=== PATIENT | female | born 1970 | race Caucasian/White ===

== ENCOUNTER → 2016-09-25 | Outpatient (CLI) | payer BC ==
--- NOTE | 2016-09-25 16:47 | KCIC ---
Bilateral digital screening mammograms: Reason for examination: Routine screening. Comparison is made to previous studies dated 11/13/2013 and 12/28/2011. The skin and nipples show no abnormalities. No abnormal axillary lymph nodes are seen. Bilateral breast implants remain in place. The breast parenchyma shows scattered fibroglandular density. (Breast density: Category B.) There are no dominant masses, suspicious calcifications or architectural distortions. Impression: No evidence of malignancy. Recommend routine screening. BI-RADS Category 1: Negative. "Our facility is accredited by the [employer] Mammography [employer]." This patient's information has been entered into a reminder system for the patient to be notified with the results of her examination and a target date for the next mammogram. Electronically signed by: Nicol Naik MD (09/25/2016 4:44 PM) [facility]
== END | disposition home or self-care (01) ==
LOC: KCIC MAMMO 12:51
PROVIDERS: ATTEND Obstetrics & Gynecology Gynecology
DX: Z12.31 Encounter for screening mammogram for malignant neoplasm of breast (principal)
CPT/HCPCS: G0202; 77067

== ENCOUNTER → 2017-12-24 | Outpatient (CLI) | payer BC ==
--- NOTE | 2017-12-24 15:31 | KCIC ---
Bilateral digital screening mammograms: Reason for examination: Routine screening. Comparison is made to previous studies dated 09/25/2016 and 11/13/2013. Interpretation was made with the benefit of CAD. The skin and nipples show no abnormalities. No abnormal axillary lymph nodes are seen. Bilateral breast implants remain present. The breast parenchyma is heterogeneously dense. (Breast density: Category C.) There continues to be small nodular parenchymal density centrally in the left breast on oblique view which is not changed. There are no new dominant masses, suspicious calcifications or architectural distortion. Impression: No evidence of malignancy. Recommend routine screening. Your patient's mammogram demonstrates that she has dense breast tissue (breast density category C or D), which could hide abnormalities, and if she has other risk factors for breast cancer that have been identified, she might benefit from supplemental screening tests that may be suggested by you as her ordering physician. Dense breast tissue, in and of itself, is a relatively common condition. Therefore, this information is not provided to cause undue concern, but rather to raise your awareness and to promote discussion with your patient regarding the presence of other risk factors, in addition to dense breast tissue. Your patient's mammography results will be sent to her. BI-RAD Category 2: Benign. "Our facility is accredited by the [employer]ammography [employer]." This patient's information has been entered into a reminder system for the patient to be notified with the results of her examination and a target date for the next mammogram. Electronically signed by: Nicol Naik MD (12/24/2017 3:28 PM) [facility]
== END | disposition home or self-care (01) ==
LOC: KCIC MAMMO 14:16
PROVIDERS: ATTEND Obstetrics & Gynecology Gynecology
DX: Z12.31 Encounter for screening mammogram for malignant neoplasm of breast (principal)
CPT/HCPCS: 77067

== ENCOUNTER → 2019-01-06 | Outpatient (CLI) | payer BC ==
--- NOTE | 2019-01-06 13:21 | KCIC ---
Bilateral digital screening mammograms: Reason for examination: Routine screening. Comparison is made to previous studies dated 12/24/2017 and 09/25/2016. Interpretation was made with the benefit of CAD. The skin and nipples show no abnormalities. No abnormal axillary lymph nodes are seen. Bilateral breast implants remain present. The breast parenchyma is heterogeneously dense. (Breast density: Category C.) There are no dominant masses, suspicious calcifications or architectural distortion. Impression: No evidence of malignancy. Recommend routine screening. Your patient's mammogram demonstrates that she has dense breast tissue (breast density category C or D), which could hide abnormalities, and if she has other risk factors for breast cancer that have been identified, she might benefit from supplemental screening tests that may be suggested by you as her ordering physician. Dense breast tissue, in and of itself, is a relatively common condition. Therefore, this information is not provided to cause undue concern, but rather to raise your awareness and to promote discussion with your patient regarding the presence of other risk factors, in addition to dense breast tissue. Your patient's mammography results will be sent to her. BI-RAD Category 2: Benign. "Our facility is accredited by the [employer] Mammography Program." This patient's information has been entered into a reminder system for the patient to be notified with the results of her examination and a target date for the next mammogram. Electronically signed by: Nicol Naik MD (01/06/2019 1:18 PM) [facility]
== END | disposition home or self-care (01) ==
LOC: KCIC MAMMO 12:31
PROVIDERS: ATTEND Obstetrics & Gynecology Gynecology
DX: Z12.31 Encounter for screening mammogram for malignant neoplasm of breast (principal); Z98.82 Breast implant status
CPT/HCPCS: 77067

== ENCOUNTER → 2020-07-19 | Outpatient (CLI) | payer BC, OTHER ==
--- NOTE | 2020-07-19 12:32 | RAD ---
DATE: July 19, 2020 EXAM: MAMMO SHERLYE DIAG BILAT, BREAST BILATERAL HISTORY: Left breast lump. History of bilateral breast implants. COMPARISON: January 06, 2019 This study was interpreted with the benefit of Computerized Aided Detection (CAD). FINDINGS: Breast Density: HETERO The breast parenchyma is heterogenously dense, which could reduce sensitivity of mammography. Breast parenchyma level C.. Bilateral retromammary saline breast implants are seen which are unchanged in position and appearance from the previous study. On the right side, there is a posterior 6:00 nodular mass measuring 14 mm. Just lateral to it in the CC view/28 is an area of architectural distortion. This could represent a radial scar. This is not seen in the MLO projection however. On the left side, there is a spiculated mass of the medial aspect of the left breast which corresponds to the palpable finding. This is located at or above the nipple level on mammography. This mass measures 2 cm in greatest dimension. There are additional scattered nodules of the left breast. No enlarged axillary lymph nodes are seen on either side. RIGHT BREAST SONOGRAPHY: High-resolution sonography of all 4 quadrants and retroareolar region of the right breast was performed. At the 12:30 position 5 cm from nipple, hypoechoic nodule is seen with thin echogenic capsule. This measures 7 mm in size. At the 12:30 position of the retroareolar region right breast, a lobulated hypoechoic nodule is seen measuring 13 mm in size and demonstrates thin echogenic capsule as well. At the 2:00 position 7 cm from the nipple, a hypoechoic nodule is seen measuring 12 mm in size with a thin echogenic capsule. This is adjacent to the breast implant. At the 6:00 position in the retroareolar region of the right breast, 2 nodules are seen one measuring 5 mm in size anteriorly and the another one posteriorly located adjacent to the implant which measures 7 mm. At the 11:00 position adjacent to the breast implant, there is a 7 mm hypoechoic nodule. There is an additional cystic nodule seen at the 11:30 position measuring 6 mm. Sonography of right axillary region demonstrates no abnormal-appearing lymph nodes. Note-additional images were saved on [facility]. LEFT BREAST SONOGRAPHY: High-resolution sonography of all 4 quadrants and the retroareolar region of the left breast was performed. At the 10:00 position 3 cm from the nipple in the region of the palpable abnormality, an irregular hypoechoic mass is seen measuring 16 mm in greatest dimension. It is taller than it is wide. There is abnormal color flow within it. Irregular spiculation is seen. This corresponds to the palpable finding and the mammographic finding of the left breast. This may represent a malignancy and biopsy is needed. At the 6 clock position 6 cm from the nipple, an irregular area of heterogeneous breast parenchyma is seen with poor margins measuring 16 mm in size. It is wider than it is tall. However, the borders are poorly defined. Along the anterior border of this irregular area, there is another small hypoechoic nodule measuring 7 mm in greatest dimension with microlobulations. Therefore, this entire irregular area is indeterminate and biopsy of this area is recommended. Sonography of the left axillary region demonstrates no abnormal appearing lymph nodes. IMPRESSION: Palpable lump of the left breast corresponds to mammographic and sonographic mass at the 10:00 position. Therefore, ultrasound-guided biopsy of this area is recommended. In addition, at the 6 clock position of the left breast, another irregular area of heterogeneous breast parenchyma is seen with poor margins. There is a small satellite hypoechoic area along the anterior border of this irregular area as well. This hypoechoic area measures 7 mm with microlobulations. Ultrasound-guided biopsy of this irregular area is recommended as well. Multiple benign-appearing nodules in the right breast. Question of radial scar on the right side seen only in the CC 3-D slice 28. No ultrasound correlate. Recommend continued mammographic and sonographic follow-up of the right breast in 6 months. Note - I discussed the findings and recommendation for biopsy with the patient after completion of the examination on July 19, 2020. In addition, I called these results to Sheron nurse in the office of Dr. Dwight Coley at 11:47 AM on July 19, 2020. BI-RADS CATEGORY: 5 HIGHLY SUGGESTIVE MALIGNANCY RECOMMENDED FOLLOW-UP: BIO BIOPSY RECOMMENDED PQRS compliance statement: Patient information was entered into a reminder system with a target due date January 19, 2021 for the next mammogram. Mammography is a sensitive method for finding small breast cancers, but it does not detect them all and is not a substitute for careful clinical examination. A negative mammogram does not negate a clinically suspicious finding and should not result in delay in biopsying a clinically suspicious abnormality. "Our facility is accredited by the [employer] Mammography Program." The patient's breast density may affect the ability of mammography to detect breast cancer. There are 4 categories of breast density, A, B, C and D. Breast density A means that most of the breast tissue is replaced with adipose tissue and therefore is not dense. Breast density B means that the breast tissue is mildly dense and scattered. Breast density C means that the breast tissue is heterogeneously dense. Breast density D means that the breast tissue is very dense. Breast densities especially C and D may decrease the sensitivity of mammography to detect breast cancer. Therefore, the patient may benefit from 3-D breast mammography (3D breast tomography) as a part of their screening mammogram. Insurance may or may not pay for this additional imaging. The patient's breast density based on today's mammogram is category C.
== END ==
LOC: MAMMO 09:35
PROVIDERS: ATTEND Preventive Medicine Public Health & General Preventive Medicine
DX: N63.22 Unspecified lump in the left breast, upper inner quadrant (principal); N63.12 Unspecified lump in the right breast, upper inner quadrant
CPT/HCPCS: 76641; 77066; G0279; 77062